=== PATIENT | male | born 1950 | race Two or more races ===

== ENCOUNTER 2021-04-12 06:53 | Day surgery (SDC) | payer OTHER ==
[~2021-04-12] VITALS: Ht 170.2 cm; Wt 74.8 kg
[~2021-04-12 06:53] MED LIST: ASPI81CH74 PO; ATOR20TA50 PO; CHOL200031 PO; DICL1GEL50 TD; GLIP5TAB12 PO; ISO60SRT PO; LISI2.5T47 PO; LORA-622 PO; PANT1INJ3 PO; TRAM50TA2 PO; WARF2TAB49 PO; [UNRECOGNIZED DRUG - CODE] DT
[2021-04-12] MEDS ORDERED: BUPIVACAINE 0.5% MPF INJ 30ML SDV IJ ONE (07:30)
[2021-04-12] MEDS ORDERED: EPINEPHrine HCL 1 MG/1 ML AMP ONE (07:30)
[2021-04-12] MEDS ORDERED: ceFAZolin 1GM/50ML 100 ML IV ONE (07:32)
[2021-04-12] MEDS ORDERED: fentaNYL CITRATE 100 MCG/2 ML VL ONE (07:51)
[2021-04-12] MEDS ORDERED: ONDANSETRON HCL 4 MG/2 ML VIAL ONE (07:52)
[2021-04-12] MEDS ORDERED: LIDOCAINE 2% (LOCAL ANESTH.) PF 5ml SDV ONE (07:52)
[2021-04-12] MEDS ORDERED: ROCURONIUM 10MG/ML 10ML VIAL IV ONE (07:52)
[2021-04-12] MEDS ORDERED: MIDAZOLAM HCL 2MG/2ML 2ml VIAL (1mg/ml) ONE (07:52)
[2021-04-12] MEDS ORDERED: HYDROmorphone HCL 2 MG/ML VL ONE ×2 (07:52→10:51)
[2021-04-12] MEDS ORDERED: PROPOFOL 10 MG/ML 20 ML IV ONE (07:53)
[2021-04-12] MEDS ORDERED: ePHEDrine SULFATE 50 MG/ML AMP ONE (07:54)
[2021-04-12 08:00] LABS: INR 1.18 (0.9-1.15); Partial Thromboplastin Time 24.2 sec (23.6-33.0)
[2021-04-12] MEDS ORDERED: NEOSTIGMINE 1 MG/ML INJ (10mg/10ML VIAL) ONE (10:10)
[2021-04-12] MEDS ORDERED: GLYCOPYRROLATE 0.2 MG/ML 1ML VIAL ONE (10:10)
[2021-04-12] MEDS ORDERED: NALOXONE HCL 0.4 MG/ML VIAL ONE (10:20)
[2021-04-12] MEDS ORDERED: METOCLOPRAMIDE HCL 5MG/ml INJ 2ml VIAL IV PRN (10:30)
[2021-04-12] MEDS ORDERED: ONDANSETRON HCL 4 MG/2 ML VIAL IV PRN (10:30)
[2021-04-12] MEDS: HYDROmorphone HCL 2 MG/ML VL IV PRN ×2 (11:22→11:50)
[2021-04-12 11:40] VITALS: BP 164/92
== END 2021-04-12 11:45 | disposition home or self-care (01) ==
LOC: SUR 06:53
PROVIDERS: ATTEND Orthopaedic Surgery Sports Medicine
DX: S46.211A Strain of muscle, fascia and tendon of other parts of biceps, right arm, initial encounter (principal); M75.101 Unspecified rotator cuff tear or rupture of right shoulder, not specified as traumatic; M25.811 Other specified joint disorders, right shoulder; I10 Essential (primary) hypertension; E11.9 Type 2 diabetes mellitus without complications; G47.33 Obstructive sleep apnea (adult) (pediatric); Z79.82 Long term (current) use of aspirin; Z20.822 Contact with and (suspected) exposure to COVID-19; Z79.899 Other long term (current) drug therapy; Z98.890 Other specified postprocedural states; Y93.89 Activity, other specified; X58.XXXA Exposure to other specified factors, initial encounter; Y92.89 Other specified places as the place of occurrence of the external cause; Y99.8 Other external cause status
CPT/HCPCS: 29822; 29826; 29827; 36415; 82962; 85610; 85730; C1713; J0171; J0690; J1170; J2001; J2250; J2310; J2405; J2704; J3010; J3490; U0003; A4565